=== PATIENT | female | born 1960 | race Caucasian/White ===

== ENCOUNTER → 2016-03-28 | Outpatient (CLI) | payer BC ==
[~2016-03-28] MED LIST: CHONCAP PO; MULT-506 PO; MULT-513 PO; OXYC-57 PO
== END | disposition home or self-care (01) ==
LOC: C.RDSM 13:00
PROVIDERS: ATTEND Physical Medicine & Rehabilitation Sports Medicine
DX: S82.892A Other fracture of left lower leg, initial encounter for closed fracture (principal); X58.XXXA Exposure to other specified factors, initial encounter

== ENCOUNTER → 2016-04-11 | Outpatient (CLI) | payer BC | END | disposition home or self-care (01) | LOC: C.RDSM 14:15 | PROVIDERS: ATTEND Physical Medicine & Rehabilitation Sports Medicine | DX: M25.572 Pain in left ankle and joints of left foot (principal) ==

== ENCOUNTER → 2016-04-26 | Day surgery (SDC) | payer BC ==
[2016-04-15 08:15] VITALS: Ht 172.7 cm; Wt 72.7 kg
[2016-04-21 15:30] LABS: BASO % 0.4 %; BASO ABS # 0.02 K/uL (0-0.2); COMPLETE YES; EOS % 1.4 %; HEMATOCRIT 39.7 % (37-47); LYMPH % 44.9 %; LYMPH ABS # 2.18 K/uL (1.2-3.4); MEAN CELL VOLUME 90.2 fL (80-100); MEAN CORPUSCULAR HEMOGLOBIN 30.5 pg (25-34); MEAN CORPUSCULAR HGB CONC 33.8 g/dl (32-36); MEAN PLATELET VOLUME 9.5 fL (7.4-10.4); MONO % 6.8 %; NEUT % 46.5 %; PLATELET COUNT 233 K/uL (130-400); WHITE BLOOD COUNT 4.86 K/uL (4.8-10.8)
[2016-04-21 15:57] LABS: BUN/CREATININE RATIO 35.4 (10-20); CREATININE 0.78 mg/dl (0.60-1.20); POTASSIUM 4.1 mmol/L (3.5-5.1)
[2016-04-21 16:00] LABS: ALB/GLOB RATIO 1.2 (0.9-2)
[~2016-04-26] VITALS: Ht 172.7 cm; Wt 72.7 kg
[~2016-04-26] MED LIST changes: +BUPIVACAINE 0.5 % 5 MG/1 ML MPF 30ML VIAL ONE; +CEFAZOLIN 2000 MG/60 ML D5W IV SCH; +FENTANYL CITRATE INJ 50 MCG/1 ML 2 ML VIAL IV PRN; +FENTANYL CITRATE INJ 50 MCG/1 ML 2 ML VIAL ONE; +LACTATED RINGER'S 1000ML 1,000 ML IV PRN; +LACTATED RINGER'S 1000ML 1,000 ML IV SCH; +MIDAZOLAM HCL 1 MG/ML 2ML VIAL ONE; -MULT-513 PO; +ONDANSETRON INJ 2 MG/ML 2 ML VIAL IV PRN; -OXYC-57 PO; +PROPOFOL IV EMULSION 10 MG/ML 20 ML VIAL IV ONE; +SODIUM CHLORIDE 0.9% 1000ML 1,000 ML IV SCH
--- NOTE | 2016-04-26 09:33 | History & Physical Bridge Note ---
H&P Re-Evaluation Bridge Note: I have examined the patient, reviewed the History & Physical and in the interval since the performance of the History & Physical I have noted the following changes of clinical significance: new fall...will check image during procedure.
--- NOTE | 2016-04-26 09:34 | Discharge Instructions ---
Discharge Instructions Visit Reason for Visit: S/P Orif Left Ankle Fx Discharge Discharge Diagnosis / Problem: remove syndesmosis screw Discharge Goals Goal(s): Improve function Medications Stopped Medications Name(s): na Restart Stopped Medication(s): use scripts as directed Activity Recommendations Activity Limitations: as noted below Lifting Limitations: until after follow-up appointment Exercise/Sports Limitations: until after follow-up appointment May Resume Sexual Activity: when tolerated Shower/Bathe: keep incision dry Driving or Machine Use: no limitations Weightbearing Status: Left partial Anesthesia . Post Anesthesia Instructions: If you have had General Anesthesia or IV Sedation: * Do not drive today. * Resume driving when surgeon permits. * Do not make important decisions or sign legal documents today. * Call surgeon for: 1. Temperature elevations greater than 101 degrees F. 2. Uncontrollable pain. 3. Excessive bleeding. 4. Persistent nausea and vomiting. 5. Medication intolerance (nausea, vomiting or rash). * For nausea and vomiting use only clear liquids such as: tea, soda, bouillon until nausea subsides, then gradually increase diet as tolerated. * If you have any concerns or questions, call your surgeon's office. If physician is unavailable and it is an emergency, call 911 or go to the nearest emergency room. . Instructions / Follow-Up Instructions / Follow-Up DIET: * Resume previous diet. MEDICATIONS: * Please take your prescriptions as instructed at your pre-op appointment and/ or see medication discharge instructions listed above. * If concerns develop, call your physician's office at . SPECIAL CARE INSTRUCTIONS: * Ice/Elevate as instructed. * Keep dressing clean, dry, intact. * Your surgical extremity may be discolored due to prepping agents used on the skin. A bluish-green tint is a normal variant and should not cause alarm. Call your doctor at [phone] if: * Temperature above 101 degrees * Pain not relieved by pain medicine ordered * There is increased drainage or redness from any incision * You have any unanswered questions, problems or concerns. FOLLOW UP VISIT: * If not already scheduled, please call the office at to schedule a follow-up appointment. Diet Recommendations Recommended Home Diet: resume previous diet Procedures Procedures Performed: remove screw Pending Studies Studies pending at discharge: no Medical Emergencies . Who to Call and When: Medical Emergencies: If at any time you feel your situation is an emergency, please call 911 immediately. . Non-Emergent Contact Non-Emergency issues call your: Specialist Call Non-Emergent contact if: temperature is above 101.5 . . "Provider Documentation" section prepared by Eliot Wiggins.
--- NOTE | 2016-04-26 10:39 | [facility] Post Operative Brief Note ---
Immediate Operative Summary Operative Date Apr 26, 2016. Pre-Operative Diagnosis S/P ORIF Left Ankle Fracture Post-Operative Diagnosis Same Procedure(s) Performed Left Ankle Open Synedsmosis Screw Removal Surgeon Dr Wiggins Non Destructive Evaluation Specialist Surgeon(s) Chucky Rodriguez PA-C Estimated Blood Loss trace Findings s/p orif Fluids (cc crystalloids) 300cc Specimens none Drains none Anesthesia local/sedation Complication(s) None Disposition Recovery Room / PACU
[2016-04-26 10:46] VITALS: TEMP 36.9
--- NOTE | 2016-04-26 10:59 | OPERATIVE REPORT ---
DATE OF OPERATION: 04/26/2016 SURGEON: Dr. Wiggins. DIRECTOR SECURITY MANAGEMENT: Julio César Rodriguez PA-C. No resident or fellow available. PREOPERATIVE DIAGNOSIS: Status post open reduction internal fixation, complex, open fracture dislocation of the left ankle. POSTOPERATIVE DIAGNOSIS: Same. OPERATION PERFORMED: Removal of syndesmosis screw. PERIOPERATIVE SITUATION: Medically cleared female who is at a point where syndesmosis screw removal is necessary in order to prevent fracture of the screw with weightbearing. Pre-removal images revealed stable mortise for a very severe complex fracture dislocation. PROCEDURE: The patient appropriately identified, site verified, consent verified, 2 grams of Ancef confirmed as being given. The screw was localized and marked with Marcaine 0.5% plain. The leg was then prepped and draped in usual routine fashion. No tourniquet was utilized or applied. The skin was then nicked with a 15 blade and then blunt dissection down to the plate. The screw was removed without difficulty. Fluoroscopic control revealed no shift of the mortise, everything was stable. At this point in time, the wound was irrigated and closed with horizontal 3-0 nylon mattress sutures and dressed appropriately. The patient transferred to holding area in satisfactory condition, having tolerated the procedure well. Estimated blood loss trace. Crystalloid 300 mL. No DVT prophylaxis required. ADDENDUM: This was a very severe fracture dislocation, and arthritis, stiffness, perilaceration numbness, tendon dysfunction, etc., have all been described to the patient. I attest to the content of the Intraoperative Record and any orders documented therein. Any exceptio ns are noted below.
[2016-04-26 11:04] VITALS: BP 114/73; PULSE 62; O2SAT 96
--- NOTE | 2016-04-26 11:05 | OPERATIVE REPORT ---
DATE OF OPERATION: 04/26/2016 PREOPERATIVE DIAGNOSIS: Left ankle retained syndesmosis screw. POSTOPERATIVE DIAGNOSIS: Left ankle same. PROCEDURE: Left ankle open syndesmosis screw removal. SURGEON: Dr. Wiggins. ACADEMIC ASSISTANT: Julio César Rodriguez PA-C. HISTORY OF PRESENT ILLNESS: This 55-year-old white female presented to the office after injuring her ankle and undergoing a successful ORIF. A syndesmosis screw remained and was ready for removal. She elected to proceed with surgical intervention after being educated about potential risks and outcomes. OPERATION: The patient was taken to the operating room where she was administered sedation and local anesthetic. She was prepped and draped in the usual sterile fashion. Please see Dr. Wiggins's operative report for specifics of the procedure. I was present for the entire case from initial patient positioning through final wound closure. Assistance was provided in tissue retraction, hemostasis, and final wound closure. The patient was taken to phase 2 recovery in satisfactory condition. I attest to the content of the Intraoperative Record and any orders documented therein. Any exceptio ns are noted below.
--- NOTE | 2016-04-26 11:09 | Anesthesia Progress Nt - [facility] ---
Anesthesia Post Op Note Date & Time Apr 26, 2016 at 11:09 Vital Signs Pain Intensity: 0 Vital Signs Past 12 Hours Date Time Temp Pulse Resp B/P Pulse Ox O2 Delivery O2 Flow Rate FiO2 04/26/16 11:04 62 18 114/73 96 Room Air 04/26/16 10:46 36.9 63 16 99/62 97 Room Air Notes Mental Status: alert / awake / arousable, participated in evaluation Pt Amnestic to Procedure: Yes Nausea / Vomiting: adequately controlled Pain: adequately controlled Airway Patency, RR, SpO2: stable & adequate BP & HR: stable & adequate Hydration State: stable & adequate Anesthetic Complications: no major complications apparent Pt doing well.
== END | disposition home or self-care (01) ==
LOC: X.SURG 09:29
PROVIDERS: ATTEND Physical Medicine & Rehabilitation Sports Medicine
DX: S82.892A Other fracture of left lower leg, initial encounter for closed fracture (principal); W11.XXXA Fall on and from ladder, initial encounter; Y93.39 Activity, other involving climbing, rappelling and jumping off

== ENCOUNTER → 2016-05-09 | Outpatient (CLI) | payer BC ==
[~2016-05-09] MED LIST changes: -BUPIVACAINE 0.5 % 5 MG/1 ML MPF 30ML VIAL ONE; -CEFAZOLIN 2000 MG/60 ML D5W IV SCH; -FENTANYL CITRATE INJ 50 MCG/1 ML 2 ML VIAL IV PRN; -FENTANYL CITRATE INJ 50 MCG/1 ML 2 ML VIAL ONE; -LACTATED RINGER'S 1000ML 1,000 ML IV PRN; -LACTATED RINGER'S 1000ML 1,000 ML IV SCH; -MIDAZOLAM HCL 1 MG/ML 2ML VIAL ONE; -ONDANSETRON INJ 2 MG/ML 2 ML VIAL IV PRN; -PROPOFOL IV EMULSION 10 MG/ML 20 ML VIAL IV ONE; -SODIUM CHLORIDE 0.9% 1000ML 1,000 ML IV SCH
== END | disposition home or self-care (01) ==
LOC: C.RDSM 09:14
PROVIDERS: ATTEND Physical Medicine & Rehabilitation Sports Medicine
DX: S82.892A Other fracture of left lower leg, initial encounter for closed fracture (principal); X58.XXXA Exposure to other specified factors, initial encounter

== ENCOUNTER → 2016-06-21 | Outpatient (CLI) | payer BC ==
--- NOTE | 2016-06-22 12:47 | MAMMOGRAPHY REPORT ---
BILATERAL DIGITAL SCREENING MAMMOGRAM WITH CAD: 06/21/2016 CLINICAL HISTORY: Routine screening examination. TECHNIQUE: Bilateral CC and MLO views were obtained. Current study was also evaluated with a Compu ter Aided Detection (CAD) system. COMPARISON: Comparison is made to exams dated: 03/21/2014 mammogram, 03/14/2012 mammogram, 05/25/2010 ma mmogram - [facility], 11/27/2008, and 11/29/2006. BREAST COMPOSITION: The tissue of both breasts is extremely dense, which lowers the sensitivity of mammography. FINDINGS: The parenchymal pattern is unchanged. There are stable punctate microcalcifications thro ughout the upper outer quadrant of the right breast. No developing mass, architectural distortion o r cluster of suspicious microcalcifications is seen in either breast. IMPRESSION: ACR BI-RADS CATEGORY 2: BENIGN There is no mammographic evidence of malignancy. A 1 year screening mammogram is recommended. The p atient will receive written notification of the results. Approximately 10% of breast cancers are not detected with mammography. A negative mammographic repor t should not delay biopsy if a clinically suggestive mass is present. Apple Gil M.D. ay/:06/21/2016 16:22:00 Sales Ambassador: Peg HEREDIA(Ruby)(Bryanna), [facility] letter sent: Normal 1/2 BI-RADS Code: ACR BI-RADS Category 2: Benign
== END | disposition home or self-care (01) ==
LOC: C.MAMM 14:14
PROVIDERS: ATTEND Obstetrics & Gynecology
DX: Z12.31 Encounter for screening mammogram for malignant neoplasm of breast (principal)

== ENCOUNTER → 2016-07-04 | Outpatient (CLI) | payer BC | LOC: C.RDSM 09:45 | PROVIDERS: ATTEND Physical Medicine & Rehabilitation Sports Medicine | DX: S82.892B Other fracture of left lower leg, initial encounter for open fracture type I or II (principal); X58.XXXA Exposure to other specified factors, initial encounter ==

== ENCOUNTER → 2016-09-20 | Outpatient (CLI) | payer BC | END | disposition home or self-care (01) | LOC: C.RDSM 07:00 | PROVIDERS: ATTEND Physical Medicine & Rehabilitation Sports Medicine | DX: Z98.890 Other specified postprocedural states (principal); Z96.7 Presence of other bone and tendon implants ==

== ENCOUNTER → 2017-01-30 | Outpatient (CLI) | payer BC | END | disposition home or self-care (01) | LOC: C.RDSM 13:00 | PROVIDERS: ATTEND Physical Medicine & Rehabilitation Sports Medicine | DX: Z98.890 Other specified postprocedural states (principal); Z96.7 Presence of other bone and tendon implants ==